=== PATIENT | male | born 1940 | race American Indian/Alaskan Native ===

== ENCOUNTER 2016-04-20 05:02 | Inpatient (IN) | payer MEDICARE ==
[2016-04-20] MEDS ORDERED: ASPIRIN PO ONE (06:26)
--- NOTE | 2016-04-20 06:31 | Emergency Department Report ---
HPI - General Chief Complaint: Chest Pain Time Seen by Provider: 04/20/16 06:25 - HPI HPI: Chief complaint: Chest pain MODE OF ARRIVAL: EMS SOURCE: Patient TIMIN:00 this morning LOCATION OF PAIN: Left chest CONTEXT: Patient is 75-year-old male with a history of coronary artery disease status post ME, stents and CABG in 2006. Patient states he's had no further problems with his heart until this occurred. Patient states sudden onset of left dull pressing chest pain with shortness of breath and diaphoresis that lasted about 20 minutes. Patient came by ambulance and was given a 81 mg aspirin in route. Patient also is his history of lung cancer being followed by Dr. Gonzales and states he is doing well. QUALITY: Dull SEVERITY: Currently 0 out of 10 DURATION OF SYMPTOMS: 30 minutes MODIFYING FACTORS: Nothing ASSOCIATED SIGNS AND SYMPTOMS: See above CARDIAC RISK FACTORS: male yes: age yes: hypertension yes: diabetes no :obesity no: cocaine no : cholesterol no: family history non: Smoker history of smoking but no longer smokes. ED Past Medical Hx - Past Medical History Previous Medical History?: Yes Hx Hypertension: Yes (high cholesterol) Hx Heart Attack/AMI: Yes Hx GERD: Yes Hx COPD: Yes - Surgical History Past Surgical History?: Yes Hx Coronary Stent: Yes (2006) Hx Open Heart Surgery: Yes (2006) Additional Surgical History: left femur - Social History Smoking Status: Former Smoker Substance Use Type: Alcohol - Medications Home Medications: Home Medications Medication Instructions Recorded Confirmed Last Taken Type Erlotinib (Nf) [Tarceva (Nf)] 150 mg PO DAILY 02/28/16 04/20/16 04/19/16 History Metoprolol Succinate [Metoprolol 50 mg PO DAILY 02/28/16 04/20/16 04/19/16 History Succinate] Oxycodone HCl [Oxycodone HCl] 5 mg PO Q6HR PRN 02/28/16 04/20/16 04/19/16 History Pregabalin [Lyrica] 75 mg PO DAILY 02/28/16 04/20/16 04/19/16 History Aspirin [Aspirin BABY CHEW TAB] 81 mg PO QDAY 04/20/16 04/20/16 04/19/16 History ED Review of Systems ROS: Stated complaint: CHEST PAIN Other details as noted in HPI ROS Constitutional: No fever ENT: No uri symptoms Cardiovascular: chest pain Respiratory: No cough GI: No nausea vomiting or diarrhea : No dysuria frequency or urgency, Skin: No rash Neuro: No focal weakness or numbness Psych: No depression Iain/lymph: No edema Musculoskeletal: Left sciatica Physical Exam - Physical Exam Vital Signs: Vital Signs 04/20/16 04/20/16 05:17 05:23 Temperature 98.7 F Pulse Rate 94 H 93 H Blood Pressure 120/84 O2 Sat by Pulse 99 Oximetry Physical Exam: GENERAL: The patient is well-developed well-nourished . HEENT: Normocephalic. Atraumatic. Extraocular motions are intact. Patient has moist mucous membranes. NECK: Supple. No meningitic signs are noted. There is no adenopathy noted. CHEST/LUNGS: Clear to auscultation. There is no respiratory distress noted. With the port to his left chest. HEART/CARDIOVASCULAR: Regular. There is no tachycardia. There is no gallop rub or murmur. ABDOMEN: Abdomen is soft, nontender. Patient has normal bowel sounds. There is no abdominal distention. SKIN: There is no rash. There is no edema. There is no diaphoresis. NEURO: The patient is awake, alert, and oriented. The patient is cooperative. The patient has normal speech. MUSCULOSKELETAL: There is no tenderness or deformity. There is no limitation range of motion. There is no evidence of acute injury. ED Course Vital Signs 04/20/16 04/20/16 05:17 05:23 Temperature 98.7 F Pulse Rate 94 H 93 H Blood Pressure 120/84 O2 Sat by Pulse 99 Oximetry - Reevaluation(s) Reevaluation #1: 04/20/16 06:32 Patient given aspirin 325 and will be admitted to the hospitalist for further evaluation. ED Medical Decision Making - Lab Data Result diagrams: 04/20/16 05:36 04/20/16 05:36 Laboratory Tests 04/20/16 04/20/16 04/20/16 05:36 05:36 08:05 PT 15.7 H INR 1.26 H APTT 87.0 H* Calcium 7.4 L Total Creatine Kinase 24 L CK-MB (CK-2) < 1.0 CK-MB (CK-2) Rel Index 4.1 H Troponin T < 0.010 < 0.010 - EKG Data -: EKG Interpreted by Me EKG shows normal: sinus rhythm Rate: normal (93) - EKG Data Interpretation: nonspecific ST-T wave arnaldo - Radiology Data interpreted by me: Chest x-ray no acute process. Critical care attestation.: If time is entered above; I have spent that time in minutes in the direct care of this critically ill patient, excluding procedure time. ED Disposition Clinical Impression: Chest pain Qualifiers: Chest pain type: unspecified Qualified Code(s): R07.9 - Chest pain, unspecified Disposition: OP ADMITTED IP TO THIS HOSP Is pt being admited?: Yes Does the pt Need Aspirin: No (given in the emergency department) Time of Disposition: 06:33
[2016-04-20 07:14] LABS: Anion Gap 20 mmol/L; Blood Urea Nitrogen 9 mg/dL (9-20); Calcium 7.4 mg/dL (8.4-10.2); Carbon Dioxide 22 mmol/L (22-30); Chloride 97.5 mmol/L (98-107); Glucose 105 mg/dL (75-100); Potassium 3.6 mmol/L (3.6-5.0); Sodium 136 mmol/L (137-145)
--- NOTE | 2016-04-20 07:16 | XRay Report ---
AP CHEST: HISTORY: chest pain Previous CABG changes. Left Ukrugh-d-Roap is in good position. The lungs are clear. No pleural effusion or pneumothorax. Heart size is within normal limits. IMPRESSION: Unremarkable AP chest.
[2016-04-20 07:17] LABS: Hematocrit 26.9 % (35.5-45.6); Hemoglobin 8.4 gm/dl (11.8-15.2); Mean Corpuscular HGB Conc 31 % (32-34); Mean Corpuscular Volume 78 fl (84-94); Platelet Count 235 K/mm3 (140-440); Red Blood Count 3.44 M/mm3 (3.65-5.03); Red Cell Distribution Width 19.1 % (13.2-15.2); White Blood Count 11.4 K/mm3 (4.5-11.0)
[2016-04-20 07:22] LABS: Mean Corpuscular Hemoglobin 24 pg (28-32)
[2016-04-20 07:23] LABS: INR 1.26 (0.87-1.13)
[2016-04-20] MEDS ORDERED: DULCOLAX PR PRN (08:00)
[2016-04-20 08:04] LABS: Basophils % (Manual) 0 % (0.0-1.8); Blastocytes % (Manual) 0 %
[2016-04-20 08:05] LABS: Anisocytosis 1+; Diff Status Complete; Hypochromasia 1+; Ovalocytes 1+; Poikilocytosis 1+; Polychromasia Few; Tear Drop Cells Few
[2016-04-20] MEDS: DUONEB 0.5 MG-3 MG/3 ML SOLN IH SCH ×3 (08:25→20:54)
[2016-04-20] MEDS ORDERED: TYLENOL PO PRN (09:00)
[2016-04-20 09:04] LABS: Creatine Kinase 24 units/L (55-170)
--- NOTE | 2016-04-20 09:45 | Admit Criteria Form ---
Admission Criteria Documentation: CHEST PAIN Clinical Indications for Admission to Inpatient Care (Place 'X' for any and all applicable criteria): Admission is indicated for chest pain and ANY ONE of the following(1)(2)(3)(4)(5 ): [ ]I. Angina with acute coronary syndrome (Also use Myocardial Infarction or Angina guideline) [ ]II. Hemodynamic instability [ X]III. Angina needing acute intervention as indicated by ALL of the following (11)(12): [ X]a) Unstable angina is present as indicated by angina that is ANY ONE of the following: [X ]i) New onset [ ]ii) Nocturnal [ ]iii) Prolonged at rest [ ]iv) Progressive [ X]b) Angina warrants acute intervention as indicated by ANY ONE of the following: [ ]i) Recurrent angina (e.g, not responding as previously to treatment) [ ]ii) Angina at rest or with low-level activities despite initial medical therapy [ ]iii) New or presumably new ST-segment depression on ECG [ ]iv) Signs or symptoms of heart failure (eg, dyspnea, pulmonary edema) [ ]v) New or worsening mitral regurgitation [ ]vi) Hemodynamic instability [ ]vii) Dangerous arrhythmia (eg, sustained ventricular tachycardia) [ ]viii) History of percutaneous coronary intervention within 6 months [ X]ix) History of coronary artery bypass graft surgery [ ]x) URI risk score of 2 or greater[A] [ ]xi) History of Diabetes(14) [ ]xii) High-risk cardiac ischemia findings on noninvasive testing (e.g, echocardiogram, treadmill testing, nuclear scan) [ ]xiii) Chronic renal insufficiency (ie, estimated GFR less than 60 mL/min/1.732m) [ ]xiv) Left ventricular ejection fraction less than 40% [ ]IV. Evidence of CA (eg, cardiac biomarkers positive, ST-segment elevation on ECG) also use Myocardial Infarction Criteria Form. [ ]V. Pulmonary edema [ ]. Respiratory distress [ ]VII. Chest pain indicative of serious diagnosis other than coronary artery disease (eg, aortic dissection) [ ]VIII. Contraindications and/or Inappropriate clinical situations for Observational Care in patients with Chest Pain, when ANY ONE of the following is required: [ ]a) Patient with risk factor for pulmonary embolism, acute coronary syndrome and myocardial infarction (18) [ ]b) Patient with Pulmonary embolism require an average LOS of 4.3 days, therefore emergency department observation management is inappropriate 18,23 [ ]c) Painful condition/s in the elderly, have the highest rate of recidivism after emergency department observation management (10.8%) 20,21,22 [ ]d) Elevated cardiac biomarker requires intensive and exhaustive care (19) [X ]IX. General contraindications and/or Inappropriate clinical situations for Observational Care in patients with Chest Pain, when ANY ONE of the following is required: [X ]a) Prediction of prolongation of LOS based on ANY ONE of the following may be considered as a contraindication for observational care 2, 3, 4, 5, 6, 7, 8, 9, 10, 11 [X ]i) Age > 65 yrs. [ X]ii) Patient arriving by ambulance [ ]iii) Patient with high acuity [ ]iv) Patient requiring vital sign monitoring [ ]v) Patient on IV medication [ ]b) Systolic blood pressures 180mmHg 3,12 [ ]c) Patient with altered mental status including delirium and other alteration of consciousness, (3) [ ]d) Patient whose discharge disposition will be to a [facility] home or rehabilitation home should not be managed in Emergency Department Observation Unit. CMS rule requires 3 days hospital stay before such placement. 3,13 [ ]e) Patient with failure to thrive due to broad array of etiologies 3,16,17 [ ]f) Inability to ambulate 3,14 Extended stay beyond goal length of stay may be needed for (1)(28): [ ]a) Specific condition diagnosed after evaluation (eg, pulmonary embolism, aortic dissection) [ ]b) Unstable angina [ ]c) Continued suspicion of acute coronary syndrome with inability to complete needed cardiac evaluation (eg, patient clinically unable to undergo stress testing) [ ]d) Myocardial infarction (Contents from ANGINA and CHEST PAIN clinical indications for admission to inpatient care have been integrated in this form) The original [employer] content created by [employer] has been revised. The portions of the content which have been revised are identified through the use of italic text or in bold, and [facility] has neither reviewed nor approved the modified material. All other unmodified content is copyright [facility]. Please see references footnoted in the original [facility] edition 2016 Admission Criteria Met: Yes
[2016-04-20] MEDS ORDERED: PROVENTIL IH PRN (09:50)
[2016-04-20] MEDS ORDERED: LEXISCAN IV ONE ×2 (09:57→10:00)
[2016-04-20] MEDS ORDERED: MORPHINE IV PRN (10:00)
[2016-04-20] MEDS ORDERED: ERLOTINIB 150 MG PO SCH (10:00)
[2016-04-20] MEDS ORDERED: ROXICODONE PO PRN (10:00)
[2016-04-20] MEDS ORDERED: MILK OF MAGNESIA PO PRN (10:00)
[2016-04-20] MEDS ORDERED: ZOFRAN IV PRN (10:00)
[2016-04-20] MEDS ORDERED: SODIUM CHLORIDE FLUSH SYRINGE 10 ML IV PRN (10:00)
[2016-04-20 10:02] LABS: Creatine Kinase MB < 1.0 ng/mL (0.0-4.0)
--- NOTE | 2016-04-20 14:49 | Consultation ---
History of Present Illness Consult date: 04/20/16 Consult reason: chest pain History of present illness: The patient is a 75-year-old man admitted to the hospital with chest pain. He describes atypical, nonexertional left-sided chest pain, with no associated factors. A 12-lead EKG in the emergency room was normal sinus rhythm without ischemic changes. Initial cardiac enzymes were negative. A Persantine thallium stress test ordered by the medical team today, was performed, and demonstrated a small, fixed anteroapical defect without ischemia. Ventricle ejection fraction was 54% on gated analysis. The patient has an extensive cardiac history, having undergone 2 way coronary artery bypass about 8-10 years ago. He states that he currently lives in [place], where he sees his community relations officer on an annual basis. He is currently in this area temporarily for management of his lung cancer at the cancer center. He has lung cancer on chemotherapy, and sits the area once a month for his chemotherapy treatments. Currently, he is comfortable, looks and feels better, no chest pain or shortness of breath. Past History Past Medical History: CAD, cancer Past Surgical History: CABG Medications and Allergies Allergies Allergy/AdvReac Type Severity Reaction Status Date / Time No Known Allergies Allergy Verified 02/28/16 08:26 Home Medications Medication Instructions Recorded Confirmed Last Taken Type Erlotinib (Nf) [Tarceva (Nf)] 150 mg PO DAILY 02/28/16 04/20/16 04/19/16 History Metoprolol Succinate [Metoprolol 50 mg PO DAILY 02/28/16 04/20/16 04/19/16 History Succinate] Oxycodone HCl [Oxycodone HCl] 5 mg PO Q6HR PRN 02/28/16 04/20/16 04/19/16 History Pregabalin [Lyrica] 75 mg PO DAILY 02/28/16 04/20/16 04/19/16 History Aspirin [Aspirin BABY CHEW TAB] 81 mg PO QDAY 04/20/16 04/20/16 04/19/16 History Active Meds: Active Medications Acetaminophen (Tylenol) 650 mg PO Q4H PRN PRN Reason: Pain MILD(1-3)/Fever >100.5/GA Albuterol (Proventil) 2.5 mg IH Q3HRT PRN PRN Reason: Shortness Of Breath Albuterol/Ipratropium (Duoneb 0.5 Mg-3 Mg/3 Ml Soln) 1 ampul IH Q6HRT [facility] Last Admin: 04/20/16 13:48 Dose: 1 ampul Bisacodyl (Dulcolax) 10 mg CA QDAY PRN PRN Reason: Constipation unrelieved by MOM Magnesium Hydroxide (Milk Of Magnesia) 30 ml PO Q4H PRN PRN Reason: Constipation Metoprolol Succinate (Toprol Xl) 50 mg PO DAILY [facility] Miscellaneous Medication (Erlotinib (Nf)) 150 mg PO DAILY [facility] Morphine Sulfate (Morphine) 4 mg IV Q4H PRN PRN Reason: Pain , Severe (7-10) Ondansetron HCl (Zofran) 4 mg IV Q8H PRN PRN Reason: N/V unrelieved by Reglan Oxycodone HCl (Roxicodone) 5 mg PO Q6HR PRN PRN Reason: Analgesia Pregabalin (Lyrica) 75 mg PO DAILY [facility] Sodium Chloride (Sodium Chloride Flush Syringe 10 Ml) 10 ml IV PRN PRN PRN Reason: LINE FLUSH Review of Systems Cardiovascular: chest pain, no orthopnea, no palpitations, no rapid/irregular heart beat, no edema, no syncope, no lightheadedness, no shortness of breath Physical Examination Vital Signs Pulse Resp 96 H 23 04/20/16 05:09 04/20/16 05:09 General appearance: no acute distress HEENT: Positive: PERRL Neck: Positive: neck supple Cardiac: Positive: Reg Rate and Rhythm Lungs: Positive: Decreased Breath Sounds Neuro: Positive: Grossly Intact Abdomen: Positive: Soft Male genitourinary: Positive: deferred Skin: Positive: Clear Extremities: Absent: edema Results 04/20/16 05:36 04/20/16 05:36 Cardiac Enzymes 04/20/16 Range/Units 08:05 CK-MB (CK-2) < 1.0 (0.0-4.0) ng/mL Lipids 04/20/16 Range/Units 08:05 Triglycerides 68 (2-149) mg/dL Cholesterol 122 (50-199) mg/dL HDL Cholesterol 41 (40-59) mg/dL Cholesterol/HDL Ratio 2.97 % EKG interpretations - Telemetry EKG Rhythm: Sinus Rhythm Assessment and Plan - Patient Problems (1) Chest pain Current Visit: Yes Status: Acute Qualifiers: Chest pain type: unspecified Qualified Code(s): R07.9 - Chest pain, unspecified Plan to address problem: Patient with lung cancer, undergoing chemotherapy, primary history of coronary artery bypass, presents with atypical chest pain. ECG and cardiac enzymes are benign, and Persantine thallium stress test is negative for ischemia. Recommend medical management including oral antiplatelet therapy, beta blockers , statin therapy for his coronary artery disease.
[2016-04-20] MEDS: TOPROL XL PO SCH (17:45)
[2016-04-20] MEDS: LYRICA PO SCH (17:46)
--- NOTE | 2016-04-20 18:17 | History and Physical Report ---
History of Present Illness Date of examination: 04/20/16 Date of admission: 04/20/16 08:00 Chief complaint: Chest Pain History of present illness: Patient is a 75-year-old male with a history of coronary artery disease status post CABG x2 vessels about 3 years ago, history of lung cancer on chemotherapy who presented to the ER with complaint of nonexertional left-sided chest pain which she rated 4/10 in intensity. Not unlike his previous chest pain that was actually much severe than this one. Both considering in all that he has been dealing with medically he felt the dyspnea to be checked it was associated with diaphoresis but no shortness of breath. He denied any exertional component to this as mentioned he denies any radiation. He denies any alleviating or aggravating factors. He states that the pain lasted about 20 minutes and resolved. He reports recent diagnosis of anemia also and is currently receiving iron infusion therapies. He noted that he has a planned appointment with health safety manager as he has some rectal bleeding noted recently. ROS Constitutional: Reports fatigue but no fever also reports weight loss. Skin: No rash. Eyes: No recent vision problems or eye pain. ENT: No congestion, ear pain, or sore throat. Endocrine: No thyroid problems. Cardiovascular: Reports chest pain with associated shortness of breath. Respiratory: Reports shortness of breath, No cough, congestion, or wheezing. Gastrointestinal: No abdominal pain, nausea, vomiting, or diarrhea. Genitourinary: No dysuria. Musculoskeletal: No joint swelling. Neurologic: No seizures. Hematologic: Reports rectal bleed. Intermittent. Psychiatric: No psychiatric problems, hallucinations or depression. All other systems reviewed and otherwise negative. Past History Past Medical History: anemia (currently being worked up), CAD, cancer Past Surgical History: CABG, Other (remote hip surgery) Social history: , full code. denies: smoking, alcohol abuse, prescription drug abuse, IV drug use Family history: no significant family history Medications and Allergies Allergies Allergy/AdvReac Type Severity Reaction Status Date / Time No Known Allergies Allergy Verified 02/28/16 08:26 Home Medications Medication Instructions Recorded Confirmed Last Taken Type Erlotinib (Nf) [Tarceva (Nf)] 150 mg PO DAILY 02/28/16 04/20/16 04/19/16 History Metoprolol Succinate [Metoprolol 50 mg PO DAILY 02/28/16 04/20/16 04/19/16 History Succinate] Oxycodone HCl [Oxycodone HCl] 5 mg PO Q6HR PRN 02/28/16 04/20/16 04/19/16 History Pregabalin [Lyrica] 75 mg PO DAILY 02/28/16 04/20/16 04/19/16 History Aspirin [Aspirin BABY CHEW TAB] 81 mg PO QDAY 04/20/16 04/20/16 04/19/16 History Active Meds: Active Medications Acetaminophen (Tylenol) 650 mg PO Q4H PRN PRN Reason: Pain MILD(1-3)/Fever >100.5/GA Albuterol (Proventil) 2.5 mg IH Q3HRT PRN PRN Reason: Shortness Of Breath Albuterol/Ipratropium (Duoneb 0.5 Mg-3 Mg/3 Ml Soln) 1 ampul IH Q6HRT [facility] Last Admin: 04/20/16 13:48 Dose: 1 ampul Bisacodyl (Dulcolax) 10 mg RI QDAY PRN PRN Reason: Constipation unrelieved by MOM Magnesium Hydroxide (Milk Of Magnesia) 30 ml PO Q4H PRN PRN Reason: Constipation Metoprolol Succinate (Toprol Xl) 50 mg PO DAILY [facility] Last Admin: 04/20/16 17:45 Dose: 50 mg Miscellaneous Medication (Erlotinib (Nf)) 150 mg PO DAILY [facility] Morphine Sulfate (Morphine) 4 mg IV Q4H PRN PRN Reason: Pain , Severe (7-10) Ondansetron HCl (Zofran) 4 mg IV Q8H PRN PRN Reason: N/V unrelieved by Reglan Oxycodone HCl (Roxicodone) 5 mg PO Q6HR PRN PRN Reason: Analgesia Pregabalin (Lyrica) 75 mg PO DAILY [facility] Last Admin: 04/20/16 17:46 Dose: 75 mg Sodium Chloride (Sodium Chloride Flush Syringe 10 Ml) 10 ml IV PRN PRN PRN Reason: LINE FLUSH Exam - Physical Exam Narrative exam: VITAL SIGNS: Reviewed. GENERAL: The patient appeared in no acute distress, mildly lethargic vital signs as documented. HEAD: No signs of head trauma. EYES: Pupils are equal. Extraocular motions intact. EARS: Hearing grossly intact. MOUTH: Oropharynx is normal. NECK: No adenopathy, no JVD. CHEST: Chest with clear breath sounds bilaterally. No wheezes, rales, or rhonchi. CARDIAC: Regular rate and rhythm. S1 and S2, without murmurs, gallops, or rubs. VASCULAR: No Edema. Peripheral pulses normal and equal in all extremities. ABDOMEN: Soft, without detectable tenderness. No sign of distention. No rebound or guarding, and no masses palpated. Bowel Sounds normal. MUSCULOSKELETAL: Good range of motion of all major joints. Extremities without clubbing, cyanosis or edema. NEUROLOGIC EXAM: Alert and oriented x 3. No focal sensory or strength deficits. Speech normal. Follows commands. PSYCHIATRIC: Mood normal. SKIN: No rash or lesions. - Constitutional Vitals: Temp Pulse Resp BP Pulse Ox 98.7 F 94 H 18 113/61 96 04/20/16 05:17 04/20/16 13:50 04/20/16 13:50 04/20/16 11:09 04/20/16 13:48 Results - Labs CBC & Chem 7: 04/20/16 05:36 04/20/16 05:36 Labs: Laboratory Last Values WBC 11.4 K/mm3 (4.5-11.0) H 04/20/16 05:36 RBC 3.44 M/mm3 (3.65-5.03) L 04/20/16 05:36 Hgb 8.4 gm/dl (11.8-15.2) L 04/20/16 05:36 Hct 26.9 % (35.5-45.6) L 04/20/16 05:36 MCV 78 fl (84-94) L 04/20/16 05:36 MCH 24 pg (28-32) L 04/20/16 05:36 MCHC 31 % (32-34) L 04/20/16 05:36 RDW 19.1 % (13.2-15.2) H 04/20/16 05:36 Plt Count 235 K/mm3 (140-440) 04/20/16 05:36 Add Manual Diff Complete 04/20/16 05:36 Total Counted 100 04/20/16 05:36 Seg Neutrophils % Acid Retort Operator 04/20/16 05:36 Seg Neuts % (Manual) 85.0 % (40.0-70.0) H 04/20/16 05:36 Band Neutrophils % 7.0 % 04/20/16 05:36 Lymphocytes % (Manual) 3.0 % (13.4-35.0) L 04/20/16 05:36 Reactive Lymphs % (Man) 0 % 04/20/16 05:36 Monocytes % (Manual) 3.0 % (0.0-7.3) 04/20/16 05:36 Eosinophils % (Manual) 1.0 % (0.0-4.3) 04/20/16 05:36 Basophils % (Manual) 0 % (0.0-1.8) 04/20/16 05:36 Metamyelocytes % 0 % 04/20/16 05:36 Myelocytes % 1.0 % 04/20/16 05:36 Promyelocytes % 0 % 04/20/16 05:36 Blast Cells % 0 % 04/20/16 05:36 Nucleated RBC % Not Reportable 04/20/16 05:36 Seg Neutrophils # Man 9.7 K/mm3 (1.8-7.7) H 04/20/16 05:36 Band Neutrophils # 0.8 K/mm3 04/20/16 05:36 Lymphocytes # (Manual) 0.3 K/mm3 (1.2-5.4) L 04/20/16 05:36 Abs React Lymphs (Man) 0.0 K/mm3 04/20/16 05:36 Monocytes # (Manual) 0.3 K/mm3 (0.0-0.8) 04/20/16 05:36 Eosinophils # (Manual) 0.1 K/mm3 (0.0-0.4) 04/20/16 05:36 Basophils # (Manual) 0.0 K/mm3 (0.0-0.1) 04/20/16 05:36 Metamyelocytes # 0.0 K/mm3 04/20/16 05:36 Myelocytes # 0.1 K/mm3 04/20/16 05:36 Promyelocytes # 0.0 K/mm3 04/20/16 05:36 Blast Cells # 0.0 K/mm3 04/20/16 05:36 WBC Morphology Not Reportable 04/20/16 05:36 Hypersegmented Neuts Not Reportable 04/20/16 05:36 Hyposegmented Neuts Not Reportable 04/20/16 05:36 Hypogranular Neuts Not Reportable 04/20/16 05:36 Smudge Cells Not Reportable 04/20/16 05:36 Toxic Granulation Not Reportable 04/20/16 05:36 Toxic Vacuolation Not Reportable 04/20/16 05:36 Dohle Bodies Not Reportable 04/20/16 05:36 Pelger-Huet Anomaly Not Reportable 04/20/16 05:36 [place] Rods Not Reportable 04/20/16 05:36 Platelet Estimate Appears normal 04/20/16 05:36 Clumped Platelets Not Reportable 04/20/16 05:36 Plt Clumps, EDTA Not Reportable 04/20/16 05:36 Large Platelets Not Reportable 04/20/16 05:36 Giant Platelets Not Reportable 04/20/16 05:36 Platelet Satelliting Not Reportable 04/20/16 05:36 Plt Morphology Comment Not Reportable 04/20/16 05:36 RBC Morphology Not Reportable 04/20/16 05:36 Dimorphic RBCs Not Reportable 04/20/16 05:36 Polychromasia Few 04/20/16 05:36 Hypochromasia 1+ 04/20/16 05:36 Poikilocytosis 1+ 04/20/16 05:36 Anisocytosis 1+ 04/20/16 05:36 Microcytosis Not Reportable 04/20/16 05:36 Macrocytosis Not Reportable 04/20/16 05:36 Spherocytes Not Reportable 04/20/16 05:36 Pappenheimer Bodies Not Reportable 04/20/16 05:36 Sickle Cells Not Reportable 04/20/16 05:36 Target Cells Not Reportable 04/20/16 05:36 Tear Drop Cells Few 04/20/16 05:36 Ovalocytes 1+ 04/20/16 05:36 Helmet Cells Not Reportable 04/20/16 05:36 [place] Bodies Not Reportable 04/20/16 05:36 [place] Rings Not Reportable 04/20/16 05:36 [place] Cells Not Reportable 04/20/16 05:36 Bite Cells Not Reportable 04/20/16 05:36 Crenated Cell Not Reportable 04/20/16 05:36 Elliptocytes Not Reportable 04/20/16 05:36 Acanthocytes (Spur) Not Reportable 04/20/16 05:36 Rouleaux Not Reportable 04/20/16 05:36 Hemoglobin C Crystals Not Reportable 04/20/16 05:36 Schistocytes Not Reportable 04/20/16 05:36 Malaria parasites Not Reportable 04/20/16 05:36 [place] Bodies Not Reportable 04/20/16 05:36 Hem Pathologist Commnt No 04/20/16 05:36 PT 15.7 Sec. (12.2-14.9) H 04/20/16 05:36 INR 1.26 (0.87-1.13) H 04/20/16 05:36 APTT 87.0 Sec. (24.2-36.6) H* 04/20/16 05:36 Sodium 136 mmol/L (137-145) L 04/20/16 05:36 Potassium 3.6 mmol/L (3.6-5.0) 04/20/16 05:36 Chloride 97.5 mmol/L (98-107) L 04/20/16 05:36 Carbon Dioxide 22 mmol/L (22-30) 04/20/16 05:36 Anion Gap 20 mmol/L 04/20/16 05:36 BUN 9 mg/dL (9-20) 04/20/16 05:36 Creatinine 0.5 mg/dL (0.8-1.5) L 04/20/16 05:36 Estimated GFR > 60 ml/min 04/20/16 05:36 BUN/Creatinine Ratio 18.00 % 04/20/16 05:36 Glucose 105 mg/dL (75-100) H 04/20/16 05:36 Calcium 7.4 mg/dL (8.4-10.2) L 04/20/16 05:36 Total Creatine Kinase 24 units/L (55-170) L 04/20/16 08:05 CK-MB (CK-2) < 1.0 ng/mL (0.0-4.0) 04/20/16 08:05 CK-MB (CK-2) Rel Index 4.1 (0-4) H 04/20/16 08:05 Troponin T < 0.010 ng/mL (0.00-0.029) 04/20/16 08:05 Triglycerides 68 mg/dL (2-149) 04/20/16 08:05 Cholesterol 122 mg/dL (50-199) 04/20/16 08:05 LDL Cholesterol Direct 68 mg/dL (50-130) 04/20/16 08:05 HDL Cholesterol 41 mg/dL (40-59) 04/20/16 08:05 Cholesterol/HDL Ratio 2.97 % 04/20/16 08:05 - Imaging and Cardiology EKG: image reviewed (normal sinus rhythm) Chest x-ray: image reviewed (no acute pathology) Assessment and Plan Assessment and plan: Patient is a 75-year-old male with a history of coronary artery disease status post CABG x2 vessels about 3 years ago, history of lung cancer on chemotherapy who presented to the ER with complaint of nonexertional left-sided chest pain which she rated 4/10 in intensity. Not unlike his previous chest pain that was actually much severe than this one. Both considering in all that he has been dealing with medically he felt the dyspnea to be checked it was associated with diaphoresis but no shortness of breath. He denied any exertional component to this as mentioned he denies any radiation. He denies any alleviating or aggravating factors. He states that the pain lasted about 20 minutes and resolved. He reports recent diagnosis of anemia also and is currently receiving iron infusion therapies. He noted that he has a planned appointment with health safety manager as he has some rectal bleeding noted recently. * Atypical chest pain * Acute blood loss anemia superimposed on anemia of chronic disease * CAD * Leukocytosis * Lung cancer * Rectal bleed intermittent * Status post CABG Plan * We'll admit patient to telemetry * Consult cardiology * Plan for stress test * Continue home medications * Patient currently being evaluated by GI outpatient has received some iron transfusion * Monitor his H&H * He reports that he was taken off of simvastatin due to cancer treatment, this reported that he discussed this with the oncologist closely. * DVT and GI prophylaxis Advance Directives: Yes Plan of care discussed with patient/family: Yes
--- NOTE | 2016-04-21 00:29 | Treadmill Report ---
THALLIUM STRESS TEST LEFT VENTRICLE: Left ventricular chamber size is within normal. Perfusion study demonstrates a small fixed anteroapical defect. On the resting study, there is no significant reversibility. Gated analysis demonstrates normal left ventricular systolic function, ejection fraction 54%. CONCLUSION: Small fixed anteroapical defect may be consistent with a small prior anterior infarct. There is no reversible ischemia demonstrated on this study. Clinical correlation is recommended. [facility]# [id number] [place]/NTS
[2016-04-21 07:07] LABS: Hemoglobin 8.6 gm/dl (11.8-15.2); Mean Corpuscular HGB Conc 32 % (32-34); Mean Corpuscular Volume 79 fl (84-94); Platelet Count 246 K/mm3 (140-440); Red Blood Count 3.43 M/mm3 (3.65-5.03); Red Cell Distribution Width 19.3 % (13.2-15.2); White Blood Count 9.5 K/mm3 (4.5-11.0)
[2016-04-21 07:12] LABS: Mean Corpuscular Hemoglobin 25 pg (28-32)
[2016-04-21] MEDS: DUONEB 0.5 MG-3 MG/3 ML SOLN IH SCH ×2 (07:33→08:41)
--- NOTE | 2016-04-21 08:39 | Discharge Summary ---
Providers - Providers Date of Admission: 04/20/16 08:00 Date of discharge: 04/21/16 Attending physician: SARAH PETE MD Primary care physician: LUCA BOOTH Hospitalization Condition: Stable Disposition: DISCHARGED TO HOME OR SELFCARE Time spent for discharge: 35 mins Core Measure Documentation - Palliative Care Palliative Care/ Comfort Measures: Not Applicable - Core Measures Any of the following diagnoses?: none - VTE Discharge Requirements Deep Vein Thrombosis/Pulmonary Embolism Present on Admission: No Exam - Physical Exam Narrative exam: VITAL SIGNS: Reviewed. GENERAL: The patient appeared in no acute distress, mildly lethargic vital signs as documented. HEAD: No signs of head trauma. EYES: Pupils are equal. Extraocular motions intact. EARS: Hearing grossly intact. MOUTH: Oropharynx is normal. NECK: No adenopathy, no JVD. CHEST: Chest with clear breath sounds bilaterally. No wheezes, rales, or rhonchi. CARDIAC: Regular rate and rhythm. S1 and S2, without murmurs, gallops, or rubs. VASCULAR: No Edema. Peripheral pulses normal and equal in all extremities. ABDOMEN: Soft, without detectable tenderness. No sign of distention. No rebound or guarding, and no masses palpated. Bowel Sounds normal. MUSCULOSKELETAL: Good range of motion of all major joints. Extremities without clubbing, cyanosis or edema. NEUROLOGIC EXAM: Alert and oriented x 3. No focal sensory or strength deficits. Speech normal. Follows commands. PSYCHIATRIC: Mood normal. SKIN: No rash or lesions. - Constitutional Vitals: Temp Pulse Resp BP Pulse Ox 98.2 F 95 H 20 123/65 95 04/21/16 05:19 04/21/16 05:19 04/21/16 05:19 04/21/16 05:19 04/21/16 05:19 Plan Activity: advance as tolerated, fall precautions Diet: low cholesterol Additional Instructions: Follow with PCP in 1 week Follow up with: LUCA BOOTH MD [Primary Care Provider] - 3-5 Days Prescriptions: amLODIPine [Norvasc] 5 mg PO DAILY #30 tab
[2016-04-21] MEDS: LYRICA PO SCH (09:47)
[2016-04-21] MEDS: TOPROL XL PO SCH (09:47)
[2016-04-21 10:00] VITALS: BP 131/62
[2016-04-21] MEDS ORDERED: FLUSH HEPARIN IV ONE (10:45)
--- NOTE | 2016-04-21 11:15 | Progress Note ---
Assessment and Plan Atypical Chest pain Persantine thallium stress test is negative for ischemia. Hx of lung cancer Hx of CAD with report bypass surgery Recommend: Continue medical management including oral antiplatelet therapy, beta blockers, statin therapy for his coronary artery disease. Stable cardiac anderson. Advised to ambulate before discharge. F/U with primary chief radiologic technologist in [place] in 1-2wks. Subjective Date of service: 04/21/16 Interval history: Patient resting in bed. He denies chest pain. Objective Vital Signs Temp Pulse Pulse Pulse Pulse Pulse Resp 04/21/16 10:26 94 H 04/21/16 09:58 98.0 F 101 H 20 04/21/16 08:54 100 H 04/21/16 08:42 102 H 04/21/16 05:19 98.2 F 95 H 20 04/21/16 00:28 97.6 F 94 H 18 04/20/16 21:04 96 H 04/20/16 20:54 95 H 04/20/16 20:32 98.1 F 111 H 20 04/20/16 16:00 98.5 F 99 H 18 04/20/16 13:50 94 H 04/20/16 13:48 Resp BP Pulse Ox 04/21/16 10:26 04/21/16 09:58 131/62 98 04/21/16 08:54 18 04/21/16 08:42 18 04/21/16 05:19 123/65 95 04/21/16 00:28 100/68 94 04/20/16 21:04 12 04/20/16 20:54 12 04/20/16 20:32 114/60 97 04/20/16 16:00 127/64 100 04/20/16 13:50 18 04/20/16 13:48 96 - Physical Examination General: No Apparent Distress HEENT: Positive: PERRL Neck: Positive: neck supple Cardiac: Positive: Reg Rate and Rhythm Lungs: Positive: Decreased Breath Sounds Neuro: Positive: Grossly Intact, Weakness Extremities: Absent: edema - Labs and Meds CBC 04/21/16 Range/Units 04:00 WBC 9.5 (4.5-11.0) K/mm3 RBC 3.43 L (3.65-5.03) M/mm3 Hgb 8.6 L (11.8-15.2) gm/dl Hct 27.0 L (35.5-45.6) % Plt Count 246 (140-440) K/mm3 - Imaging and Cardiology EKG: image reviewed (normal sinus rhythm)
== END 2016-04-21 13:34 | disposition home or self-care (01) | DRG 313 ==
LOC: ED 05:02 → 4A 08:00
PROVIDERS: ADMIT Internal Medicine; ATTEND Internal Medicine
DX: R07.89 Other chest pain (principal); D62 Acute posthemorrhagic anemia; K62.5 Hemorrhage of anus and rectum; C34.90 Malignant neoplasm of unspecified part of unspecified bronchus or lung; I25.10 Atherosclerotic heart disease of native coronary artery without angina pectoris; K21.9 Gastro-esophageal reflux disease without esophagitis; J44.9 Chronic obstructive pulmonary disease, unspecified; D63.8 Anemia in other chronic diseases classified elsewhere; D72.829 Elevated white blood cell count, unspecified; I25.2 Old myocardial infarction; Z95.1 Presence of aortocoronary bypass graft; Z87.891 Personal history of nicotine dependence; Z98.890 Other specified postprocedural states; Z95.5 Presence of coronary angioplasty implant and graft; Z79.899 Other long term (current) drug therapy
CPT/HCPCS: 36415; 71010; 78452; 80048; 80061; 82550; 82553; 84484; 85007; 85025; 85027; 85610; 85730; 93005; 93010; 93017; 94640; 96374; A9502; J1642; J2785

== ENCOUNTER 2016-08-10 09:02 | Outpatient (CLI) | payer MEDICARE ==
--- NOTE | 2016-08-10 15:03 | Magnetic Resonance Report ---
MRI BRAIN WITHOUT AND WITH CONTRAST: 08/10/16 CLINICAL: Lung cancer. TECHNIQUE: Axial diffusion, T1, FLAIR, gradient echo T2*, and coronal and axial T2 and sagittal T1 plus coronal and axial postcontrast T1 sequences on a 1.5 Yodit magnet. 13.0 cc of Multihance was injected intravenously for the contrast portion of the exam. Consent was obtained prior to the administration of contrast. FINDINGS: Moderate enlargement of sulci but normal size ventricles for age. No restricted diffusion. No mass or enhancing lesion. No hemorrhage, edema or extra-axial collection. Normal pituitary and optic chiasm. The brainstem and cerebellum are normal. Intact vascular flow voids. The orbits, sinuses and soft tissues are normal. Normal calvarium and skull base. IMPRESSION: No evidence of metastasis and no acute change. Global cortical atrophy.
--- NOTE | 2016-08-11 13:00 | Cat Scan Report ---
CT NECK, CHEST, ABDOMEN AND PELVIS WITH CONTRAST: 08/10/16 CLINICAL: Malignant neoplasm lung. COMPARISON: CT chest and abdomen 02/16/16. No prior CT neck for comparison. TECHNIQUE: Volumetric acquisition and 1.25 millimeter scan reconstructions after the uneventful intravenous injection of 100 cc Omnipaque 300. Consent was obtained prior to the administration of contrast. Oral contrast was also given. FINDINGS: Neck: No mass or lymphadenopathy of the neck. Normal mucosal structures. Chest: The previous described spiculated opacity in the left upper lobe has increased in size and measures approximately 3.0 x 1.5 cm compared to 2.6 x 1.5 cm. An enhancing nodular component measures 1.4 x 1.4 cm compared to 0.6 cm on the last exam. Stable right lower lobe parenchymal scar. No other lung nodule or mass. Left lower lobe infiltrate has resolved. No mediastinal or hilar lymphadenopathy. No supraclavicular or axillary lymphadenopathy. Normal thyroid, trachea and esophagus. The heart and aorta are normal. The pulmonary arteries are normal. Abdomen: The previously described right hepatic VII mass has decreased in size and measures approximately 4.5 x 4.8 cm is compared to 6.9 x 6.6 cm is. There is also reduced vascularity at the periphery of the mass. No new mass. The hepatic and portal vasculature are normal. The gallbladder and bile ducts are normal. A hypodense portacaval lymph node is not is larger and measures 2.5 x 1.7 cm compared to 2.2 x 1.8 cm. No new lymphadenopathy. Normal stomach, duodenum, and spleen. Normal pancreas. Normal retroperitoneum, adrenal glands, aorta and inferior vena cava. Normal kidneys with nondilated renal collecting systems and ureters. No ascites and no pneumoperitoneum. The small bowel is normal. Scattered diverticula the colon but no diverticulitis. Normal appendix. Pelvis: The urinary bladder is small with a mildly thickened wall. Stable enlargement of the prostate. The rectum is normal. Mild sigmoid diverticulosis but no diverticulitis. 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 Stable chronic upper thoracic mid wedge compression fracture. IMPRESSION: 1. A slightly larger left upper lobe lung mass. 2. A smaller right hepatic mass but a slightly larger portacaval lymph node metastasis. 3. Stable skeletal metastasis with a stable upper thoracic chronic wedge compression fracture.
== END 2016-08-10 09:03 | disposition home or self-care (01) ==
LOC: SPVIMAG 09:02
PROVIDERS: ATTEND Internal Medicine Hematology
DX: C79.51 Secondary malignant neoplasm of bone (principal); C34.11 Malignant neoplasm of upper lobe, right bronchus or lung; K57.30 Diverticulosis of large intestine without perforation or abscess without bleeding; N40.0 Benign prostatic hyperplasia without lower urinary tract symptoms; M48.54XA Collapsed vertebra, not elsewhere classified, thoracic region, initial encounter for fracture; R91.8 Other nonspecific abnormal finding of lung field; K76.89 Other specified diseases of liver; G31.89 Other specified degenerative diseases of nervous system
CPT/HCPCS: 70491; 70553; 71260; 74177; A9577; Q9967

== ENCOUNTER 2016-11-29 09:27 | Outpatient (CLI) | payer MEDICARE ==
--- NOTE | 2016-11-29 14:08 | Cat Scan Report ---
CT CHEST, ABDOMEN AND PELVIS WITH CONTRAST: 11/29/16 09:27:00 CLINICAL: Lung cancer followup. COMPARISON: 08/10/16 TECHNIQUE: Volumetric acquisition and 1.25 millimeter scan reconstructions after the uneventful intravenous injection of 100 cc of Omnipaque 300. Consent was obtained prior to the administration of the contrast. Oral contrast was also given. FINDINGS: Chest: The previously described spiculated left upper lobe lung opacity has increased slightly in size and measures 3.3 x 1.3 cm compared to 3.0 x 1.5 cm on the last exam. The enhancing nodular component measures 1.6 x 1.0 cm compared to 1.4 x 1.4 cm. Stable right lower lobe parenchyma scar. Normal aorta, heart and pulmonary arteries. Normal esophagus and trachea. No mediastinal or hilar lymphadenopathy. Small bilateral hilar lymph nodes are stable. No pleural effusion. No axillary or supraclavicular lymphadenopathy. Abdomen: Several new heterogeneous enhancing liver masses have developed since the last exam and previously described hypodense masses are less prominent. These new masses are at the border of segments VIII and LUL. The largest is oval and measures 3.3 x 2.7 cm. Adjacent more inferior masses measure 1.8 x 1.6 cm and 1.3 x 1.0 cm. A more superior enhancing mass measures 9 x 7 mm. The gallbladder and bile ducts are normal. The previously described enlarged portacaval lymph node is smaller and measures 1.8 x 1.6 cm compared to 2.5 x 1.7 cm. No new lymphadenopathy. No ascites. Normal stomach, duodenum, pancreas and spleen. Normal adrenal glands. Normal kidneys. Normal aorta and inferior vena cava. No lymphadenopathy.No ascites.Normal small bowel. Normal ascending, transverse and descending colon. Normal appendix. Pelvis: Normal urinary bladder and rectum.Stable enlarged prostate with central enhancement. 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 Stable chronic upper thoracic mid wedge compression fracture. No new lesions. IMPRESSION:1. A stable left upper lobe lung mass. 2. 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 3. Stable skeletal metastasis.
== END 2016-11-29 09:28 | disposition home or self-care (01) ==
LOC: SPVIMAG 09:27
PROVIDERS: ATTEND Internal Medicine Hematology
DX: C78.7 Secondary malignant neoplasm of liver and intrahepatic bile duct (principal); C34.11 Malignant neoplasm of upper lobe, right bronchus or lung; N40.0 Benign prostatic hyperplasia without lower urinary tract symptoms; C79.51 Secondary malignant neoplasm of bone; M48.54XA Collapsed vertebra, not elsewhere classified, thoracic region, initial encounter for fracture
CPT/HCPCS: 71260; 74177; Q9967